=== PATIENT | female | born 1970 | race Hispanic/Latino ===

== ENCOUNTER 2021-07-20 19:55 | Observation (INO) | payer OTHER ==
[~2021-07-20] VITALS: Ht 165.1 cm; Wt 109.5 kg
[2021-07-20] MEDS ORDERED: ASPIRIN 81 MG CHEW TAB PO ONE ×2 (20:15→21:15)
[2021-07-20] MEDS ORDERED: METOPROLOL TARTRATE INJ 1 MG/ML VIAL IV ONE (20:30)
[2021-07-20 20:33] LABS: BASOPHILS % 0.2 % (0.0-1.0); EOSINOPHILS # (AUTO) 0.1 (0.0-0.4); EOSINOPHILS % 1.1 % (0.0-6.0); HEMATOCRIT 40.6 % (34.2-44.1); HEMOGLOBIN 12.9 g/dL (12.0-16.0); LYMPHOCYTES # (AUTO) 2.1 (1.0-3.2); LYMPHOCYTES % 25.5 % (18.0-39.1); MEAN CORPUSCULAR HEMOGLOBIN 27.4 pg (28-32); MEAN CORPUSCULAR HGB CONC 31.8 g/dL (31-35); MEAN CORPUSCULAR VOLUME 86.4 fL (81-99); MONOCYTES # (AUTO) 0.6 (0.2-0.8); MONOCYTES % 7.3 % (4.4-11.3); NEUTROPHILS # (AUTO) 5.4 (2.1-6.9); NEUTROPHILS % 65.7 % (38.7-80.0); PLATELET COUNT 244 x10e3/uL (140-360); RED CELL DISTRIBUTION WIDTH 13.7 % (11.7-14.4)
[2021-07-20] MEDS ORDERED: METOPROLOL TARTRATE INJ 1 MG/ML VIAL ONE (20:46)
[2021-07-20 20:54] LABS: ALBUMIN 3.7 g/dL (3.5-5.0); ANION GAP 13.8 mmol/L (8-16); CALCIUM 8.5 mg/dL (8.4-10.2); CREATININE, SERUM 0.91 mg/dL (0.57-1.11); POTASSIUM 3.8 mmol/L (3.5-5.1)
[2021-07-20 21:01] LABS: CREATINE KINASE MB 0.9 ng/mL (0-5.0)
[2021-07-20] MEDS ORDERED: Morphine 4mg Syringe 4 MG/ML INJ IV PRN (21:15)
[2021-07-20] MEDS ORDERED: ONDANSETRON HCL INJ 2MG/ML 2ML 2 MG/ML VIAL IV PRN (21:15)
[2021-07-20] MEDS: SODIUM CHLORIDE 0.9% 1000ML 1,000 ML IV SCH (22:40)
[2021-07-20 22:47] VITALS: BP 161/93
[2021-07-21] VITALS (8 sets, daily range): BP systolic 116–161; BP diastolic 63–95
[2021-07-21] MEDS ORDERED: CYMBALTA30 MG (03:21)
[2021-07-21] MEDS: SODIUM CHLORIDE 0.9% 1000ML 1,000 ML IV SCH (05:15)
[2021-07-21 05:48] LABS: BASOPHILS % 0.3 % (0.0-1.0); EOSINOPHILS # (AUTO) 0.2 (0.0-0.4); EOSINOPHILS % 1.6 % (0.0-6.0); HEMATOCRIT 37.5 % (34.2-44.1); HEMOGLOBIN 11.8 g/dL (12.0-16.0); LYMPHOCYTES # (AUTO) 2.6 (1.0-3.2); LYMPHOCYTES % 28.9 % (18.0-39.1); MEAN CORPUSCULAR HEMOGLOBIN 27.1 pg (28-32); MEAN CORPUSCULAR HGB CONC 31.5 g/dL (31-35); MEAN CORPUSCULAR VOLUME 86.2 fL (81-99); MONOCYTES # (AUTO) 0.8 (0.2-0.8); MONOCYTES % 8.7 % (4.4-11.3); NEUTROPHILS # (AUTO) 5.5 (2.1-6.9); NEUTROPHILS % 60.2 % (38.7-80.0); PLATELET COUNT 231 x10e3/uL (140-360); RED BLOOD COUNT 4.35 x10e6/uL (3.6-5.1); RED CELL DISTRIBUTION WIDTH 13.7 % (11.7-14.4)
[2021-07-21 06:12] LABS: ALBUMIN 3.3 g/dL (3.5-5.0); ANION GAP 12.6 mmol/L (8-16); CALCIUM 8.1 mg/dL (8.4-10.2); CREATININE, SERUM 0.85 mg/dL (0.57-1.11); POTASSIUM 4.6 mmol/L (3.5-5.1)
[2021-07-21 06:20] LABS: CREATINE KINASE MB 3.5 ng/mL (0-5.0)
[2021-07-21] MEDS ORDERED: ACETAMINOPHEN 325 MG TAB PO PRN (13:15)
[2021-07-21] MEDS ORDERED: ONDANSETRON HCL 4 MG ORAL DISINTEGRATING TAB PO PRN (13:30)
[2021-07-21 18:51] LABS: CREATINE KINASE MB 3.4 ng/mL (0-5.0)
[2021-07-22 00:42] VITALS: BP 131/83
[2021-07-22 05:05] VITALS: BP 105/53
[2021-07-22 07:43] VITALS: BP 108/69
[2021-07-22] MEDS ORDERED: DULOXETINE HCL 30 MG DELAYED RELEASE PO SCH (09:00)
[2021-07-22] MEDS ORDERED: METOPROLOL SUCCINATE 25 MG TAB XL PO SCH (09:00)
[2021-07-22 09:25] VITALS: BP 108/69
== END 2021-07-22 10:25 | disposition home or self-care (01) ==
LOC: ER 19:58 → ERHOLD 21:44 → MED/SURG2 23:18
PROVIDERS: ADMIT Internal Medicine; ATTEND Internal Medicine
DX: I47.1 Supraventricular tachycardia (principal); I20.9 Angina pectoris, unspecified; R07.89 Other chest pain; E66.01 Morbid (severe) obesity due to excess calories; Z82.49 Family history of ischemic heart disease and other diseases of the circulatory system; Z68.41 Body mass index [BMI] 40.0-44.9, adult; Z20.822 Contact with and (suspected) exposure to COVID-19
CPT/HCPCS: 36415 ×2; 71045; 80053 ×2; 82550 ×2; 82553 ×2; 84443; 84484 ×2; 85025 ×2; 93005 ×2; 93306; 99285; G0378 ×3; J7030 ×2; U0002